=== PATIENT | male | born 1965 | race Caucasian/White ===

== ENCOUNTER 2021-11-17 05:00 | Inpatient (IN) ==
--- NOTE | 2021-10-10 14:17 | Anesthesiology Consultation ---
Date of Service October 10, 2021 Assessment & Plan (1) Encounter for pre-operative examination: - check coags STAT am DOS. - to anesthesiologist discretion if repeat EKG needed am DOS. - PCP pre-op evaluation 10/05/21 [facility]: "...Pre-op clearance- procedure/ surgeon/ date: L knee replacement revision/ 10/13/21 / Dr. Mckenzie - [facility]- Hx of CT or CVA: denied...EKG, CXR and labs done- CXR normal, EKG:sinus tachycardia with HR of 109-Cr:0.98, hgb: 14.5...- Pt is sched to undergo L knee revision- BP is slightly elevated: pt missed few meds dose recently---- recommended continuous use of HTN meds- otherwise VSS and normal PE- revised cardiac index of zero- Pt is cleared for surgery..." - COVID screening: Per per assessment nurse on 10/10/2021: Travel screen negative, no known COVID-19 positive contacts or current COVID-19 related symptoms in past 2 weeks. Surgeon arranging preop COVID testing, scheduled 10/11/2021. Awaiting results. Chart Review Chart Review: Acceptable Risk for Surgery and Patient NOT seen in Pre Admission Testing History Surgery Operation Date: 10/13/21 15:35 Proposed Procedures p Left Knee Poly Exchange of Total Knee Arthroplasty - Oleksandr Mckenzie, Height/Weight Height: 5 ft 7 in Weight: 90.718 kg Allergies Allergy/AdvReac Type Severity Reaction Status Date / Time adhesive Allergy Unknown SKIN Verified 10/10/21 12:14 IRRITATION bee venom protein (honey bee) Allergy Unknown SWELLING Verified 10/10/21 12:14 ,RESPIRATORY DISTRESS latex Allergy Unknown LOCAL SKIN Verified 10/10/21 12:14 IRRITATION, SWELLING Medications Home Medications Medication Instructions Recorded Confirmed Last Taken allopurinol 100 mg tablet 100 mg PO BID 10/10/21 10/10/21 Unknown ascorbic acid (vitamin C) 500 mg 500 mg PO DAILY 10/10/21 10/10/21 Unknown tablet (Vitamin C) atorvastatin 10 mg tablet 10 mg PO QAM 10/10/21 10/10/21 Unknown cholecalciferol (vitamin D3) 10 10 mcg PO DAILY 10/10/21 10/10/21 Unknown mcg (400 unit) tablet (Vitamin D3) escitalopram oxalate 10 mg tablet 10 mg PO USEASDIRECTD 10/10/21 10/10/21 Unknown hydrochlorothiazide 25 mg tablet 25 mg PO QAM 10/10/21 10/10/21 Unknown losartan 50 mg tablet 50 mg PO QAM 10/10/21 10/10/21 Unknown magnesium 250 mg tablet 250 mg PO DAILY 10/10/21 10/10/21 Unknown turmeric 400 mg capsule 500 mg PO DAILY 10/10/21 10/10/21 Unknown Past Medical History Medical History (Updated 10/10/21 @ 14:26 by Liana Yuen PA-C) Acid reflux occ. Anxiety HX MED...NOT CURRENT USING CURRENTLY CONTROLLED Arthritis Borderline high cholesterol History of gout HTN (hypertension) Insomnia VARIES Restless leg syndrome Past Family History Family History Other Family history of diabetes mellitus in father Past Surgical History Surgical History History of ankle surgery RIGHT History of colonoscopy History of hand surgery LEFT MIDDLE FINGER History of knee surgery TOTAL RIGHT KNEE RECONSTRUCTION SURGERY AGE 17 History of surgery LEFT INDEX FINGER - PIN AND SINCE REMOVED History of total left knee replacement EXTENDED HOSPITAL STAY FOR N/V, DIARRHEA, ? ABNORMAL LIVER BLOOD WORK - PT NOT SURE DETAILS - NO FURTHER ISSUES SINCE BLOOD WORK DONE SEVERAL TIMES SINCE SURGERY AND EVERYTHING COMES BACK OKAY WITH THE LIVER SINCE (PER PT) Social History Smoking Status: Never smoker Do You Dip or Chew Tobacco: No Hx Alcohol Use: Yes Alcohol type: beer alcohol intake frequency: a few times a week Alcohol Intake Frequency Comment: ON AVERAGE 2-3 BEERS PER WEEK substance use type: does not use Lab Results Anesthesia Preop Results Results Anesthesia Widget: WBC 10.42 K/uL (4.8-10.8) 10/03/21 Hgb 14.5 g/dL (14.0-18.0) 10/03/21 Hct 42.6 % (42-52) 10/03/21 Plt 329 K/uL (130-400) 10/03/21 Na 135 mmol/L (136-145) L 10/03/21 K 4.4 mmol/L (3.5-5.1) 10/03/21 Cl 100 mmol/L (98-107) 10/03/21 CO2 27 mmol/L (21-32) 10/03/21 BUN 14 mg/dl (6-23) 10/03/21 Creat 0.98 mg/dl (0.6-1.4) 10/03/21 Glucose Level 91 mg/dl (70-99(Fasting)) 10/03/21 PT 10.6 Seconds (9.0-12.0) 10/03/21 PTT 26.1 Seconds (21.0-31.0) 10/03/21 INR 1.0 (0.9-1.1) 10/03/21 HA1c 5.5 % (4.5-5.6) 10/03/21 Urine Color Dark Yellow 10/03/21 Urine Appearance Clear (Clear) 10/03/21 Urine pH 6.0 (4.5-7.5) 10/03/21 Urine Specific [place] 1.021 (1.000-1.030) 10/03/21 Urine Protein Negative (Negative) 10/03/21 Urine Glucose (UA) Negative (Negative) 10/03/21 Urine Ketones Trace (Negative) H 10/03/21 Urine Blood Negative (Negative) 10/03/21 Urine Nitrite Negative (Negative) 10/03/21 Urine Bilirubin Negative (Negative) 10/03/21 Urine Urobilinogen Negative (Negative) 10/03/21 Urine Leukocyte Esterase Negative (Negative) 10/03/21 Testing Electrocardiogram Date: 10/03/21 Sinus tachycardia, rate 109 bpm Chest X-Ray Date: 10/03/21 No lines and tubes are seen. The cardiomediastinal silhouette is normal. The lungs are clear. No evidence of pleural effusion or pneumothorax. IMPRESSION: No acute chest disease.
--- NOTE | 2021-10-11 16:22 | History & Physical Report ---
Date of Service October 11, 2021 Assessment & Plan (1) Subluxation of left knee: Plan: Schedule a left knee polyethylene bearing exchange of the left total knee for 10/13/2021. All potential risks, benefits, complications, alternatives, and rehab were discussed with the patient. The patient wishes to proceed with the surgery as indicated. Aspirin 81 mg twice daily x4 weeks postop for DVT prophylaxis. (2) Mechanical complication associated with orthopedic device: (3) History of total knee arthroplasty: History of Present Illness Chief Complaint: Left knee pain and instability Primary Care Provider: Ramon Wilson MD This the patient had undergone a left total knee arthroplasty in April 2010. He progressed well in his postoperative period was uneventful. He has not had any troubles without left knee until approximately 4 weeks ago. He had an instability feeling in the knee which shift. He would then cause pain. Instability seem to be in a seated position with his leg hanging. He was evaluated in the office and his exam suggests a broken post within the polyethylene bearing. He is now being set up for surgical treatment. Allergies Allergy/AdvReac Type Severity Reaction Status Date / Time adhesive Allergy Unknown SKIN Verified 10/10/21 12:14 IRRITATION bee venom protein (honey bee) Allergy Unknown SWELLING Verified 10/10/21 12:14 ,RESPIRATORY DISTRESS latex Allergy Unknown LOCAL SKIN Verified 10/10/21 12:14 IRRITATION, SWELLING Home Medications Medication Instructions Recorded Confirmed Type allopurinol 100 mg tablet 100 mg PO BID 10/10/21 10/10/21 History ascorbic acid (vitamin C) 500 mg 500 mg PO DAILY 10/10/21 10/10/21 History tablet (Vitamin C) atorvastatin 10 mg tablet 10 mg PO QAM 10/10/21 10/10/21 History cholecalciferol (vitamin D3) 10 10 mcg PO DAILY 10/10/21 10/10/21 History mcg (400 unit) tablet (Vitamin D3) escitalopram oxalate 10 mg tablet 10 mg PO USEASDIRECTD 10/10/21 10/10/21 His tory hydrochlorothiazide 25 mg tablet 25 mg PO QAM 10/10/21 10/10/21 History losartan 50 mg tablet 50 mg PO QAM 10/10/21 10/10/21 History magnesium 250 mg tablet 250 mg PO DAILY 10/10/21 10/10/21 History turmeric 400 mg capsule 500 mg PO DAILY 10/10/21 10/10/21 History Past Med/Surg History Medical History (Updated 10/11/21 @ 16:18 by Luis M Loza PA-C) Acid reflux occ. Anxiety HX MED...NOT CURRENT USING CURRENTLY CONTROLLED Arthritis Borderline high cholesterol History of gout HTN (hypertension) Insomnia VARIES Restless leg syndrome Surgical History (Updated 10/11/21 @ 16:18 by Luis M Loza PA-C) History of ankle surgery RIGHT History of colonoscopy History of hand surgery LEFT MIDDLE FINGER History of knee surgery TOTAL RIGHT KNEE RECONSTRUCTION SURGERY AGE 17 History of surgery LEFT INDEX FINGER - PIN AND SINCE REMOVED History of total left knee replacement EXTENDED HOSPITAL STAY FOR N/V, DIARRHEA, ? ABNORMAL LIVER BLOOD WORK - PT NOT SURE DETAILS - NO FURTHER ISSUES SINCE BLOOD WORK DONE SEVERAL TIMES SINCE SURGERY AND EVERYTHING COMES BACK OKAY WITH THE LIVER SINCE (PER PT) Family History Other Family history of diabetes mellitus in father Social History Smoking Status: Never smoker Hx Alcohol Use: Yes Alcohol type: beer Preferred Language: Romanian Communication Ability: Effective Vision Care Associate Required: No Beliefs That Will Affect Care: None Current Living Situation: Significant Other Feels Safe at Home: Yes Assistive Devices: Glasses Physical Exam Constitutional: well developed and well nourished; no acute distress ENMT: external ear and nose normal, oropharynx normal Neck: trachea midline Respiratory: normal respiratory effort, lungs clear to auscultation Cardiovascular: Rate/Rhythm: regular rate and regular rhythm Gastrointestinal (Abdomen): normal bowel sounds, soft, nontender, no hepatosplenomegaly Musculoskeletal: Knee: + surgical incision (Healed anterior left knee incision), + limited ROM of knee (Instability with left knee flexion and extension), + anterior drawer test positive (Left) and + posterior drawer test positive (Left); no skin erythema and no ecchymosis Skin: no rashes, warm and dry Trauma: no evidence of skin trauma Neurologic: normal touch/pain/proprioception Psychiatric: A+Ox3, euthymic affect Speech: normal rate/rhythm/volume of speech Lymphatic: no cervical or axillary lymphadenopathy
--- NOTE | 2021-11-16 14:32 | History & Physical Report ---
Date of Service November 16, 2021 Assessment & Plan (1) Subluxation of left knee: Plan: Schedule a left knee polyethylene bearing exchange of the left total knee for 10/13/2021. All potential risks, benefits, complications, alternatives, and rehab were discussed with the patient. The patient wishes to proceed with the surgery as indicated. Aspirin 81 mg twice daily x4 weeks postop for DVT prophylaxis. (2) Mechanical complication associated with orthopedic device: (3) History of total knee arthroplasty: History of Present Illness Chief Complaint: Left knee pain Primary Care Provider: Ramon Wilson MD This the patient had undergone a left total knee arthroplasty in April 2010. He progressed well in his postoperative period was uneventful. He has not had any troubles without left knee until approximately 4 weeks ago. He had an instability feeling in the knee which shift. He would then cause pain. Ins tability seem to be in a seated position with his leg hanging. He was evaluated in the office and his exam suggests a broken post within the polyethylene bearing. He is now being set up for surgical treatment. Allergies Allergy/AdvReac Type Severity Reaction Status Date / Time adhesive Allergy Unknown SKIN Verified 10/10/21 12:14 IRRITATION bee venom protein (honey bee) Allergy Unknown SWELLING Verified 10/10/21 12:14 ,RESPIRATORY DISTRESS latex Allergy Unknown LOCAL SKIN Verified 10/10/21 12:14 IRRITATION, SWELLING Home Medications Medication Instructions Recorded Confirmed Type allopurinol 100 mg tablet 100 mg PO BID 10/10/21 10/10/21 History ascorbic acid (vitamin C) 500 mg 500 mg PO DAILY 10/10/21 10/10/21 History tablet (Vitamin C) atorvastatin 10 mg tablet 10 mg PO QAM 10/10/21 10/10/21 History cholecalciferol (vitamin D3) 10 10 mcg PO DAILY 10/10/21 10/10/21 History mcg (400 unit) tablet (Vitamin D3) escitalopram oxalate 10 mg tablet 10 mg PO USEASDIRECTD 10/10/21 10/10/21 History hydrochlorothiazide 25 mg tablet 25 mg PO QAM 10/10/21 10/10/21 History losartan 50 mg tablet 50 mg PO QAM 10/10/21 10/10/21 History magnesium 250 mg tablet 250 mg PO DAILY 10/10/21 10/10/21 History turmeric 400 mg capsule 500 mg PO DAILY 10/10/21 10/10/21 History Past Med/Surg History Medical History Acid reflux occ. Anxiety HX MED...NOT CURRENT USING CURRENTLY CONTROLLED Arthritis Borderline high cholesterol History of gout HTN (hypertension) Insomnia VARIES Restless leg syndrome Surgical History History of ankle surgery RIGHT History of colonoscopy History of hand surgery LEFT MIDDLE FINGER History of knee surgery TOTAL RIGHT KNEE RECONSTRUCTION SURGERY AGE 17 History of surgery LEFT INDEX FINGER - PIN AND SINCE REMOVED History of total left knee replacement EXTENDED HOSPITAL STAY FOR N/V, DIARRHEA, ? ABNORMAL LIVER BLOOD WORK - PT NOT SURE DETAILS - NO FURTHER ISSUES SINCE BLOOD WORK DONE SEVERAL TIMES SINCE SURGERY AND EVERYTHING COMES BACK OKAY WITH THE LIVER SINCE (PER PT) Family History Other Family history of diabetes mellitus in father Social History Smoking Status: Never smoker Hx Alcohol Use: Yes Alcohol type: beer Preferred Language: Wolof Communication Ability: Effective Supervisor Engraving Required: No Beliefs That Will Affect Care: None Current Living Situation: Significant Other Feels Safe at Home: Yes Assistive Devices: Glasses Physical Exam Constitutional: well developed and well nourished; no acute distress ENMT: external ear and nose normal, oropharynx normal Neck: trachea midline Respiratory: normal respiratory effort, lungs clear to auscultation Cardiovascular: Rate/Rhythm: regular rate and regular rhythm Gastrointestinal (Abdomen): normal bowel sounds, soft, nontender, no hepatosplenomegaly Musculoskeletal: Knee: + surgical incision (Healed anterior left knee incision), + limited ROM of knee (Instability with left knee flexion and extension), + anterior drawer test positive (Left) and + posterior drawer test positive (Left); no skin erythema and no ecchymosis Skin: no rashes, warm and dry Trauma: no evidence of skin trauma Neurologic: normal touch/pain/proprioception Psychiatric: A+Ox3, euthymic affect Speech: normal rate/rhythm/volume of speech Lymphatic: no cervical or axillary lymphadenopathy
[~2021-11-17 05:00] MED LIST: ACETAMINOPHEN 500 MG TAB PO SCH; CeleBREX 200 MG CAP PO SCH; FAMOTIDINE 20 MG TAB PO SCH; GABAPENTIN 600 MG DOSE PO SCH; LR 500ML BOLUS, THEN 15ML/HR IV SCH; METOCLOPRAMIDE HCL 10 MG TABLET PO SCH; ROPIVACAINE 0.5% HCL/PF 150 MG, BUPIVACAINE 0.75% MPF 20 ML, EPINEPHrine 30MG/30ML (OR ... INFIL SCH; ceFAZolin 2000MG 2,000 MG/15 ML SYR IV SCH; dexAMETHasone 4 MG TAB PO SCH
[2021-11-17 05:45] LABS: Partial Thromboplastin Ratio 0.9; Partial Thromboplastin Time 25.9 Seconds (21.0-31.0); Prothrombin Time 10.3 Seconds (9.0-12.0)
[2021-11-17] MEDS ORDERED: METOCLOPRAMIDE HCL 10 MG TABLET PO SCH (06:00)
[2021-11-17] MEDS ORDERED: ACETAMINOPHEN 500 MG TAB PO SCH (06:00)
[2021-11-17] MEDS ORDERED: ROPIVACAINE 0.5% HCL/PF 150 MG, BUPIVACAINE 0.75% MPF 20 ML, EPINEPHrine 30MG/30ML (OR ... INFIL SCH (06:00)
[2021-11-17] MEDS ORDERED: GABAPENTIN 600 MG DOSE PO SCH (06:00)
[2021-11-17] MEDS ORDERED: FAMOTIDINE 20 MG TAB PO SCH (06:00)
[2021-11-17] MEDS ORDERED: ceFAZolin 2000MG 2,000 MG/15 ML SYR IV SCH (06:00)
[2021-11-17] MEDS ORDERED: dexAMETHasone 4 MG TAB PO SCH (06:00)
[2021-11-17] MEDS ORDERED: CeleBREX 200 MG CAP PO SCH (06:00)
[2021-11-17] MEDS ORDERED: LR 500ML BOLUS, THEN 15ML/HR IV SCH (06:00)
[2021-11-17] MEDS ORDERED: BUPIVACAINE 0.5 % 5 MG/1 ML PF 10ML VIAL ONE (06:09)
[2021-11-17] MEDS ORDERED: ROPIVACAINE 0.5% 5 MG/ML 30 ML VIAL ONE (06:09)
[2021-11-17] MEDS ORDERED: MIDAZOLAM HCL 1 MG/ML 2ML VIAL ONE ×2 (06:34→07:47)
[2021-11-17] MEDS ORDERED: PROPOFOL IV EMULSION 10 MG/ML 20 ML VIAL IV ONE ×2 (06:34→07:57)
[2021-11-17] MEDS ORDERED: ONDANSETRON INJ 2 MG/ML 2 ML VIAL ONE (06:34)
[2021-11-17] MEDS ORDERED: DEXAMETHASONE SOD INJ 4 MG/ML VIAL ONE ×2 (06:34→07:59)
[2021-11-17] MEDS ORDERED: fentaNYL citrate 100 MCG/2 ML VIAL ONE (06:35)
[2021-11-17] MEDS ORDERED: ONDANSETRON INJ 2 MG/ML 2 ML VIAL IV PRN ×2 (06:56→10:31)
[2021-11-17] MEDS ORDERED: ATROPINE SULFATE 0.1 MG/ML 10ML SYR IV PRN (06:56)
[2021-11-17] MEDS ORDERED: ePHEDrine sulfate 50 MG/ML AMP IV PRN (06:56)
[2021-11-17] MEDS ORDERED: fentaNYL citrate 100 MCG/2 ML VIAL IV PRN (06:56)
[2021-11-17] MEDS ORDERED: TRANEXAMIC ACID / 0.7% NACL 1,000 MG/100 ML BAG IV STA (07:09)
--- NOTE | 2021-11-17 07:09 | History & Physical Bridge Note ---
Date of Service November 17, 2021 History & Physical Bridge Note I have examined the patient, reviewed the History & Physical and in the interval since the performance of the History & Physical I have noted the following changes of clinical significance: no changes noted
[2021-11-17] MEDS ORDERED: ceFAZolin 330 MG/ML 1 GM VIAL ONE (07:13)
[2021-11-17] MEDS ORDERED: ORTHO JOINT ANESTHETIC ONE (07:13)
[2021-11-17] MEDS ORDERED: TRANEXAMIC ACID / 0.7% NACL 1000MG/100ML BAG IV ONE (07:15)
--- NOTE | 2021-11-17 08:53 | Post Operative Brief Note ---
Immediate Post Op Note v1 Date of Surgery November 17, 2021 Pre & Post Diagnosis Operation Date: 11/17/21 07:15 Pre-Op Diagnosis: Left Knee Broken Polyethylene Liner Post Post-Op Diagnosis: Left Knee Broken Polyethylene Liner Post, Extensive Synovitis Knee I identified the patient and participated in the time-out.: Yes Procedure Operation Date: 11/17/21 07:15 Actual Procedures p Left Knee Polyethylene Liner Exchange of Total Knee Arthroplasty for Broken Polyethylene Post with August & Nephew 11 mm posterior stabilized polyethylene, Extensive Synovectomy left knee - Oleksandr Mckenzie DO Surgeon Oleksandr Mckenzie DO Technician [employer]aning Luis M Loza PA-C Estimated Blood Loss 2 Findings Consistent with Post-Op Diagnosis Specimens Deep synovium knee Polyethylene for pathological/mechanical assessment Drains Other (None) Anesthesia Type MAC Spinal Regional Complications none Disposition Accompanied Patient To Recovery: No Overlapping Procedure I was present for: the critical portions of procedure. I was immediately available: during the entire case.
--- NOTE | 2021-11-17 09:45 | XRay Report ---
XR knee LT 1 or 2V routine HISTORY: 56 years-old Male Surgical Post Op left knee total joint arthroplasty COMPARISON: Knee radiographs 04/14/2010 TECHNIQUE: 2 views of the left knee FINDINGS: Left knee total joint arthroplasty with patellar resurfacing. Anterior midline skin sendy are noted with expected postoperative soft tissue swelling and deep tissue air. No acute fracture or unexpecte d opaque foreign body. Unchanged corticated ossification within the popliteal tissues. IMPRESSION: Left knee total joint arthroplasty and patella resurfacing with expected postoperative ch anges. ACT 112: Negative or not required by law. The above report was generated using voice recognition software. It may contain grammatical, syntax o r spelling errors. Electronically signed by: Jac De La Cruz M.D. 11/17/2021 9:42 AM
--- NOTE | 2021-11-17 09:46 | Anesthesiology Progress Note ---
Date of Service November 17, 2021 Anesthesia Post Procedure Vital Signs Vital Signs: Temp Pulse Pulse Resp BP Pulse Ox 11/17/21 09:30 75 14 116/71 99 11/17/21 09:21 97.7 F 77 15 115/64 100 11/17/21 05:37 98.2 F 73 16 165/92 H 99 Transfer of Care Handoff Completed per policy Notes Mental Status: alert / awake / arousable and participated in evaluation Patient Amnestic to Procedure: Yes Nausea / Vomiting: adequately controlled Pain: adequately controlled Airway Patency, RR, SpO2: stable & adequate BP & HR: stable & adequate Hydration State: stable & adequate Neuraxial Anesthesia: was administered and sensory block is resolving Anesthetic Complications: no major complications apparent and Pt Satisfied with anesthetic care
[2021-11-17] MEDS ORDERED: MAGNESIUM HYDROXIDE SUSP 30 ML UDC PO PRN (10:31)
[2021-11-17] MEDS ORDERED: ESCITALOPRAM OXALATE 10 MG TAB PO SCH (10:31)
[2021-11-17] MEDS ORDERED: ALUMINUM/MAGNESIUM SUSP 30 ML UDC PO PRN (10:31)
[2021-11-17] MEDS ORDERED: bisacodyL 10 MG SUPP PR PRN (10:31)
[2021-11-17] MEDS ORDERED: diphenhydrAMINE Capsule 25 MG CAP PO PRN (10:31)
[2021-11-17] MEDS ORDERED: METOCLOPRAMIDE HCL INJ 5 MG/ML 2 ML VIAL IV PRN (10:31)
[2021-11-17] MEDS ORDERED: KETOROLAC TROMETHAMINE 15 MG/ML VIAL IV PRN (10:31)
[2021-11-17] MEDS ORDERED: HYDROmorphone INJ 0.5 MG/0.5 ML SYR IV PRN (10:31)
[2021-11-17] MEDS ORDERED: NALOXONE HCL 0.4 MG/1 ML VIAL/CARP IV PRN (10:31)
[2021-11-17] MEDS ORDERED: TAMSULOSIN HCL 0.4 MG CAP PO PRN (10:31)
--- NOTE | 2021-11-17 11:16 | Operative Report (OR) ---
DATE OF PROCEDURE: 11/17/2021. PREOPERATIVE DIAGNOSIS: Left knee broken polyethylene liner post. POSTOPERATIVE DIAGNOSES: 1. Left knee broken polyethylene liner post. 2. Extensive synovitis of the knee. PROCEDURES PERFORMED: 1. Left knee polyethylene liner exchange total knee arthroplasty for broken polyethylene post with S mith and Nephew 11 mm posterior stabilized polyethylene. 2. Extensive synovectomy of the left knee. SURGEON: Oleksandr Mckenzie DO. LOG LOADER: Luis M Loza PA-C who was present for patient positioning, sterile prep and drape, management of retractors and instruments. He was present through the critical portions of the case i ncluding wound closure, application of sterile dressing and transport of the patient to recovery. ANESTHESIA: MAC, spinal, regional with local intraarticular. SPECIMENS: 1. Deep synovium from the knee. 2. Polyethylene for pathological/mechanical assessment of broken hardware. DRAINS: None. COMPLICATIONS: None. BLOOD LOSS: 2 mL. PERTINENT HISTORY: This is a 56-year-old gentleman who had a left cemented total knee arthroplasty i 2009 that I had performed for the patient. He had a successful postoperative course. He was happy with the knee replacement and he had no complaints or problems until approximately 2 months ago when the patient began having had acute onset of left knee pain with mechanical symptoms. He was eventua lly seen in the clinic. He was evaluated. Radiographs, CT scans, further advanced imaging were obta ined. He had no evidence of infectious markers and he had findings and physical exam consistent with a broken polyethylene liner post. This was confirmed with assessment performed with imaging. The p atient was scheduled initially for surgery; however, then he had coronavirus and had his surgical pro cedure delayed. Once he was then cleared for surgery, he was then scheduled for surgery as indicated . All potential risks, benefits, complications, alternatives, rehab potential for incomplete relief of symptoms, need for further surgery, DVT, PE, , persistent pain, swelling, scarring, weakness, ne urovascular injury, wound complications, hardware failure, nonunion, malunion, bone fracture were dis cussed with the patient. The patient decided to proceed with the procedure as indicated. DESCRIPTION OF PROCEDURE: The patient had a regional anesthetic performed [facility] by the anesthesiologist. The patient was then taken to the operative suite and placed supine on the operating room table. After review of consent and identification of proper site, the patient was sedated. Spinal anesthetic was administered. The tourniquet was applied high on the left thigh over cast padding. Left lower extremity was then sterilely prepped and draped in the usual fashion, elevated and exsanguinated with an Esmarch bandage and tourniquet inflated to 325 mmHg. Next, after surgical timeout was performed, a 10 blade midline incision was made over the left anteri or knee at the site of prior incision. The incision was then deepened through the skin scar and subc utaneous tissue to the level of the extensor. Next, careful dissection was performed with Adson force ps and 10 blade scalpel, developed full thickness skin flaps. Next, the superior medial corner of th e knee was marked with a sterile skin marker and median parapatellar arthrotomy was created with a 10 blade scalpel. Next, there was noted to be a broken polyethylene liner post lodged in the suprapate llar pouch. This was then removed and sent for specimen. Next, using careful retraction of the soft tissues, complete extensive synovectomy was then performed with noted hemosiderin staining around the site of the polyethylene liner post, which was lodged in the suprapatellar pouch. Next, taking care to avoid contact with any of the articular surfaces of th e implant using Edmundo retractor and skin rakes, extensive synovectomy was then performed with 10 blad e scalpel and forceps. Next, after soft tissue was elevated from around the polyethylene liner, the broken post was clearly evident. The osteotome and mallet was then used to release the locking mechanism of the polyethylene liner. Polyethylene liner was then removed in its entirety and then sent for pathological specimen. Next, synovectomy was then continued in the posterior capsule of the knee and then the site was then copiously lavaged with pulsatile lavage until clear. Next, careful hemostasis was achieved with elec trocautery throughout the knee. Minimal bleeding overall was noted. Next, the remaining components were tested for stability with a mallet and a bone tamp. There was noted to be no loosening of the f emur, tibial or patellar components. Next, an 11 trial poly was attempted, noted to be markedly more stable resolving any loosening, full extension and 130 degrees of flexion was achieved on the table without difficulty. Next, the trial li ner was removed. Pulsatile lavage was then used with 3 liters of saline with Ancef additive to clean se the joint in its entirety until clear, followed by implantation of the 11 mm posterior stabilized August and Nephew polyethylene liner. Range of motion was performed, 0-130 degrees of flexion without difficulty was achieved on the table. Stable medial and lateral collaterals were noted. Hardware wa s intact and stable. Next, the Orthomix was then injected circumferentially around the capsule, taking care to avoid the l ateral aspect of the capsule to avoid transient peroneal nerve palsy and a Betadine soak was then per formed for 3 minutes. This was then lavaged clear with pulse lavage and saline with Ancef. Next, al l surfaces were suctioned and dried. There is no need for use of a drain The knee was placed on a 30 degree bump and the extensor was closed with interrupted #1 Vicryl figure -of-eight sutures followed by closure of the dermis with buried interrupted 2-0 Vicryl. Skin was david sed using skin sendy. A sterile compressive dressing was applied from toes to groin. The patient was awakened. Tourniquet was released and patient was taken to recovery in stable condition. Job ID: [id number]
[2021-11-17] MEDS: SODIUM CHLORIDE 0.9% 1000ML 1,000 ML IV SCH ×2 (11:33→21:29)
--- NOTE | 2021-11-17 11:34 | Hospitalist Consultation ---
Date of Consultation November 17, 2021 Assessment & Plan (1) History of total knee arthroplasty: (2) Subluxation of left knee: POD#0 left knee polyexchange by Dr. Mckenzie. History of left TKA in 2009 and patient developed a broken post within the polyethylene bearing. Activity and wound care orders as per ortho Pain control with bowel regimen PT/OT Monitor H/H for acute blood loss anemia and transfuse blood products PRN Minimal EBL (3) HTN (hypertension): BP controlled, continue HCTZ and losartan (4) History of gout: Continue allopurinol (5) HLD (hyperlipidemia): Continue statin (6) Anxiety: Continue citalopram (7) DVT prophylaxis: ASA 81 mg BID as per Ortho Thank you for this consultation. We will follow the patient with you during their hospital stay. You can reach a member of the [facility] Hospitalist Team 31/12 via the [place] [facility] Hospitalist role in [place] Text. Supervising Physician Co-Signing Physician Notes Pt was seen and examined. Agreed with Kathleen GONZALEZ exam, assessment and Plan. 56-year-old male PMH gout, HTN, HLD, anxiety, s/p left knee polyexchange today by Dr. Mckenzie. Pt said that pain is control. No postop complication. Continue pain management. Will do incentive spirometry. Monitor H/H. PT/OT eval as per ortho. Fall precaution. MD Jaimee History of Present Illness Reason for Consultation: Postop medical management Requesting Physician: Dr. Mckenzie History of Present Illness 56-year-old male PMH gout, HTN, HLD, anxiety, and other problems listed below who is s/p left knee polyexchange today by Dr. Mckenzie. Patient previously had a left TKA in 2009 and subsequently developed a broken post within the polyethylene bearing and presented for planned procedure today. Postoperative, the patient is doing well. He reports some residual numbness and tingling from the spinal block. He is able to move both legs. Denies chest pain or shortness of breath. No lightheadedness or dizziness. Denies abdominal pain or nausea. He has not voided since surgery. Allergies Allergy/AdvReac Type Severity Reaction Status Date / Time bee venom protein (honey bee) Allergy Severe SWELLING Verified 11/17/21 05:33 ,RESPIRATORY DISTRESS latex Allergy Intermediate LOCAL SKIN Verified 11/17/21 05:33 IRRITATION, SWELLING adhesive Allergy Mild SKIN Verified 11/17/21 05:33 IRRITATION Home Medications Medication Instructions Recorded Confirmed Type allopurinol 100 mg tablet 100 mg PO BID 10/10/21 11/17/21 History ascorbic acid (vitamin C) 500 mg 500 mg PO DAILY 10/10/21 11/17/21 History tablet (Vitamin C) atorvastatin 10 mg tablet 10 mg PO QAM 10/10/21 11/17/21 History cholecalciferol (vitamin D3) 10 10 mcg PO DAILY 10/10/21 11/17/21 History mcg (400 unit) tablet (Vitamin D3) hydrochlorothiazide 25 mg tablet 25 mg PO QAM 10/10/21 11/17/21 History losartan 50 mg tablet 50 mg PO QAM 10/10/21 11/17/21 History magnesium 250 mg tablet 250 mg PO DAILY 10/10/21 11/17/21 History turmeric 400 mg capsule 500 mg PO DAILY 10/10/21 11/17/21 History citalopram 10 mg tablet 10 mg PO DAILY 11/17/21 11/17/21 History Patient History Medical History Acid reflux occ. Anxiety Arthritis Borderline high cholesterol History of gout HLD (hyperlipidemia) HTN (hypertension) Insomnia VARIES Restless leg syndrome Surgical History History of ankle surgery RIGHT History of colonoscopy History of hand surgery LEFT MIDDLE FINGER History of knee surgery TOTAL RIGHT KNEE RECONSTRUCTION SURGERY AGE 17 History of surgery LEFT INDEX FINGER - PIN AND SINCE REMOVED History of total left knee replacement EXTENDED HOSPITAL STAY FOR N/V, DIARRHEA, ? ABNORMAL LIVER BLOOD WORK - PT NOT SURE DETAILS - NO FURTHER ISSUES SINCE BLOOD WORK DONE SEVERAL TIMES SINCE SURGERY AND EVERYTHING COMES BACK OKAY WITH THE LIVER SINCE (PER PT) Family History Other Family history of diabetes mellitus in father Social History Smoking Status: Never smoker Do You Dip or Chew Tobacco: No; Hx Alcohol Use: Yes Alcohol type: beer Preferred Language: [place]i Communication Ability: Effective Manager Multimedia Required: No Beliefs That Will Affect Care: None Current Living Situation: Significant Other Other Information That Helps Us Care for You: No Feels Safe at Home: Yes Assistive Devices: Glasses Assistive Devices Comment: UPPER PARTIAL Review of Systems Review of Systems: ROS per HPI, all other systems reviewed and negative Physical Exam Constitutional: WD/WN, vitals as above Eyes: PERRL, conjunctivae normal, anicteric sclerae ENMT: external ear and nose normal, oropharynx normal Respiratory: normal respiratory effort, lungs clear to auscultation Cardiovascular: Rate/Rhythm: regular rate and regular rhythm Vessels: normal peripheral pulses Extremities: no edema Gastrointestinal (Abdomen): normal bowel sounds, soft, nontender, no hepatosplenomegaly Musculoskeletal: s/p left knee surgery, surgical dressing CDI, circulation and movement intact, sensation remains mildly reduced from spinal block Skin: no rashes, warm and dry Neurologic: PERRL, EOMI, accommodation nl, no face palsy, no dysarthria Results & Data Results & Data ([facility]) Vital Signs (Past 12 Hours) Vital Signs Temp Pulse Pulse Pulse Resp BP BP 11/17/21 10:57 36.4 C L 74 16 124/67 11/17/21 10:36 36.4 C L 80 18 113/64 11/17/21 10:10 72 15 96/63 L 11/17/21 10:00 72 15 119/70 11/17/21 09:50 36.4 C L 70 10 L 106/71 11/17/21 09:40 64 10 L 104/71 11/17/21 09:30 75 14 116/71 11/17/21 09:21 36.5 C 77 15 115/64 11/17/21 05:37 36.8 C 73 16 165/92 H Pulse Ox 11/17/21 10:57 97 11/17/21 10:36 98 11/17/21 10:10 95 11/17/21 10:00 95 11/17/21 09:50 92 11/17/21 09:40 100 11/17/21 09:30 99 11/17/21 09:21 100 11/17/21 05:37 99
[2021-11-17] MEDS: oxyCODONE HCL IR 5 MG TAB (IMMEDIATE RELEASE) PO PRN ×3 (13:53→23:35)
[2021-11-17] MEDS: ACETAMINOPHEN 500 MG TAB PO SCH ×2 (13:53→21:52)
[2021-11-17] MEDS: ceFAZolin 2000MG 2,000 MG/15 ML SYR IV SCH ×2 (15:20→23:36)
[2021-11-17] MEDS ORDERED: SENNA 8.6 MG TAB PO SCH (21:00)
[2021-11-17] MEDS: DOCUSATE SODIUM 100 MG CAP PO SCH (21:32)
[2021-11-17] MEDS: allopurinoL 100 MG TAB PO SCH (21:52)
[2021-11-17] MEDS: ASPIRIN 81 MG ECTAB PO SCH (21:52)
[2021-11-18] MEDS: ACETAMINOPHEN 500 MG TAB PO SCH (05:28)
[2021-11-18 06:33] LABS: Hematocrit (blood only) 33.1 % (42-52); Hemoglobin 11.2 g/dL (14.0-18.0); Mean Corpuscular Hgb Conc 33.8 g/dL (32-36); Mean Corpuscular Volume 91.7 fL (80-100); Mean Platelet Volume 10.2 fL (7.4-10.4); Platelet Count 290 K/uL (130-400); RDW Coefficient of Variation 12.4 % (11.5-14.5); Red Blood Count 3.61 M/uL (4.7-6.1); White Blood Count 12.43 K/uL (4.8-10.8)
[2021-11-18 06:49] LABS: BUN Creatinine Ratio 13.3 (10-20); Calcium 8.8 mg/dl (8.5-10.1); Creatinine Clr Calc Pharmacy 96.1 ml/min; Est GFR (African American) 108.7 ml/min; Est GFR (Non-African American) 93.8 ml/min; Potassium 4.4 mmol/L (3.5-5.1)
[2021-11-18] MEDS: oxyCODONE HCL IR 5 MG TAB (IMMEDIATE RELEASE) PO PRN ×2 (07:42→13:15)
[2021-11-18] MEDS: ASPIRIN 81 MG ECTAB PO SCH (08:28)
[2021-11-18] MEDS: DOCUSATE SODIUM 100 MG CAP PO SCH (08:28)
[2021-11-18] MEDS: allopurinoL 100 MG TAB PO SCH (08:28)
[2021-11-18] MEDS ORDERED: CITALOPRAM 20 MG TAB PO SCH (09:00)
[2021-11-18] MEDS ORDERED: MAGNESIUM OXIDE 400 MG TAB PO SCH (09:00)
[2021-11-18] MEDS ORDERED: ASCORBIC ACID 500 MG TAB PO SCH (09:00)
[2021-11-18] MEDS ORDERED: MULTIVITAMIN TAB PO SCH (09:00)
[2021-11-18] MEDS ORDERED: CHOLECALCIFEROL 400 UNITS 10 MCG TAB PO SCH (09:00)
[2021-11-18] MEDS ORDERED: ATORVASTATIN 10 MG TAB PO SCH (09:00)
[2021-11-18] MEDS ORDERED: NON-FORMULARY MEDICATION (Turmeric 400 mg Capsule) PO SCH (09:00)
[2021-11-18] MEDS ORDERED: hydroCHLOROthiazide 25 MG TAB PO SCH (09:00)
[2021-11-18] MEDS ORDERED: CeleBREX 200 MG CAP PO SCH (09:00)
[2021-11-18] MEDS ORDERED: LOSARTAN POTASSIUM 50 MG TAB PO SCH (09:00)
--- NOTE | 2021-11-18 10:30 | Orthopedic Progress Note ---
Date of Service November 18, 2021 Assessment & Plan (1) History of total knee arthroplasty: Plan: Postoperative day #1 status post left total knee arthroplasty polyethylene exchange for broken poly. Weightbearing as tolerated. Encourage knee range of motion. We will let him work with therapy today, and as long as he does well, he can be discharged home with home health. Admission and Anticipated Discharge Date Admission Date: November 17, 2021 Subjective Patient resting comfortably in chair. Pain is controlled. He has been ambulating in his room on his own. He still has some numbness in his foot, but this is progressively improving. He has not yet worked with physical therapy. Physical Exam Physical Exam: Left knee dressings are clean, dry, intact. Motor and sensory function is grossly intact distally. Results & Data ([facility]) Vital Signs (Past 12 Hours) Vital Signs Temp Pulse Resp BP Pulse Ox 11/18/21 07:51 36.4 C L 73 16 149/86 H 98 11/18/21 02:13 36.4 C L 81 16 162/78 H 100 Laboratory Results Labs reviewed and stable.
[2021-11-18] MEDS ORDERED: ALUMINUM/MAGNESIUM/SIMETH (MAALOX MAX) 30 ML UDC PO PRN (10:49)
[2021-11-18] MEDS ORDERED: FAMOTIDINE 10 MG TABLET PO SCH (11:00)
--- NOTE | 2021-11-18 14:45 | Hospitalist Progress Note ---
Date of Service November 18, 2021 Assessment & Plan (1) History of total knee arthroplasty: (2) Subluxation of left knee: Plan: S/P Left knee polyexchange by Dr. Mckenzie. POD #1 Acute postoperative blood loss anemia h/o left TKA in 2010 Pain control Incentive spirometry Bowel regimen to prevent constipation Continue PT OT DVT prophylaxis as per primary team No indication for blood transfusion currently Needs follow-up with orthopedics upon discharge (3) HTN (hypertension): Plan: Mildly elevated Likely situational secondary to pain Continue losartan, HCTZ (4) History of gout: Plan: Continue allopurinol (5) HLD (hyperlipidemia): Plan: Continue statin (6) Anxiety: Plan: Continue citalopram (7) DVT prophylaxis: Plan: ASA 81 mg BID as per Ortho Thank you for this consultation. We will follow the patient with you during their hospital stay. You can reach a member of the [facility] Hospitalist Team 31/12 via the [facility] Hospitalist role in [place] Text. Admission and Anticipated Discharge Date Admission Date: November 17, 2021 Subjective Patient is seen and examined at bedside States having heartburn this morning Ambulated with PT earlier today Left knee pain is controlled Denies any chest pain, dyspnea, dizziness, nausea, abdominal pain Offers no other complaints Review of Systems Review of Systems: All systems reviewed & are unremarkable except as noted in Subjective Physical Exam Physical Exam: Physical Exam: Vitals signs as noted above General Appearance:Moderately built and nourished, no apparent distress Head: normocephalic, Atraumatic Eyes: normal inspection, EOMI Neck: supple, Trachea midline Respiratory/Chest: Normal breath sounds, CTA, No accessory muscle use Cardiovascular: S1, S2, No murmur Abdomen/GI:Soft, Non tender, Bowel sounds present Extremities/Musculoskeletal:normal inspection, no edema, Left knee in dressing Neurologic/Psych:AAOX3, grossly no focal neurological deficits Skin: normal color, warm Results & Data Results & Data ([facility]) Vital Signs (Past 12 Hours) Vital Signs Temp Pulse Pulse Pulse Resp BP BP 11/18/21 10:48 36.4 C L 80 73 73 16 113/64 149/86 H 11/18/21 07:51 36.4 C L 73 16 149/86 H Pulse Ox 11/18/21 10:48 98 11/18/21 07:51 98 Laboratory Results Short CBC 11/18/21 Range/Units 05:58 WBC 12.43 H (4.8-10.8) K/uL Hgb 11.2 L (14.0-18.0) g/dL Hct 33.1 L (42-52) % Plt Count 290 (130-400) K/uL BMP 11/18/21 05:58 Sodium 135 L Potassium 4.4 Chloride 105 Carbon Dioxide 22 BUN 12 Creatinine 0.90 Glucose 139 H Calcium 8.8
== END 2021-11-18 13:28 | disposition home health service (06) | DRG 488 ==
LOC: 3E 05:00 → ASU 05:00 → OBSVTOIN 09:22